=== PATIENT | female | born 1975 | race Caucasian/White ===

== ENCOUNTER → 2020-11-24 | Outpatient (CLI) | payer OTHER ==
[~2020-11-24] MED LIST: CIPRO500 M1 PO; FLOMAX0.4 MG PO; LEVSIN0.125 MG PO; LOSARTAN-HCTZ1 EAC1 PO; MOTION RELIEF25 MG; MULTIVITAMINS1 EAC7 PO; PERCOCET 5-3251 EACH PO; PHENAZOPYRIDIN200 M2 PO; PIOGLITAZONE15 MG PO; ZOFRAN ODT4 MG; ZOFRAN ODT4 MG PO; [UNRECOGNIZED DRUG - OTHER]
== END ==
LOC: LAB 07:38
PROVIDERS: ATTEND Specialist
DX: J02.9 Acute pharyngitis, unspecified (principal); R09.81 Nasal congestion; Z20.822 Contact with and (suspected) exposure to COVID-19